=== PATIENT | male | born 1955 | race African-American/Black ===

== ENCOUNTER 2020-04-15 16:47 | Inpatient (IN) ==
[2020-04-15 19:00] LABS: Basophils % 0.2 % (0.0-0.8); Hematocrit 46.1 VOL% (42.0-52.0); Hemoglobin 16.1 GM/DL (14.0-18.0); Immature Granulocytes % 0.4 %; Immature Granulocytes Absolute 0.04 #; Lymphocytes # 2.1 10*3/uL (1.4-4.0); Lymphocytes % 19.5 % (21.2-54.2); Mean Corpuscular HGB Conc 34.9 GM/DL (32-36); Mean Corpuscular Volume 95.8 FL (87-102); Neutrophils % 69.9 % (38.7-73.9); Platelet Count 107 T/CUMM (130-400); Red Blood Count 4.81 MC/CUMM (3.8-5.5); Red Cell Distribution Width 12.5 % (9.3-17.3); White Blood Count 10.6 T/CUMM (4-12)
[2020-04-15 19:26] LABS: Albumin 3.5 G/DL (3.4-5.0); Bilirubin,Total 1.3 MG/DL (0.2-1.0); Calcium 9.1 MG/DL (8.5-10.1); Osmolality,Calculated 284.5 MOS/KG (273-304); Potassium 4.4 MMOL/L (3.5-5.1); Total Protein 7.8 G/DL (5.0-7.5)
[2020-04-15] MEDS ORDERED: ENOXAPARIN 100 MG/ML SYRINGE SUBCUT STA (19:44)
[2020-04-15] MEDS ORDERED: ALUMINUM/MAGNES/SIMETH MAX STR 30 ML UDCUP PO PRN (19:54)
[2020-04-15] MEDS ORDERED: NICOTINE 21 MG/24 HR PATCH TRANSDERM PRN (19:54)
[2020-04-15] MEDS ORDERED: GLUCAGON 1 MG VIAL IM PRN (19:54)
[2020-04-15] MEDS ORDERED: BISACODYL 5 MG TABLET PO PRN (19:54)
[2020-04-15] MEDS ORDERED: SIMETHICONE CHEW 125 MG TABLET PO PRN (19:54)
[2020-04-15] MEDS ORDERED: MORPHINE 4 MG/1 ML VIAL IV PRN (19:54)
[2020-04-15] MEDS ORDERED: diphenhydrAMINE CAP 25 MG CAPSULE PO PRN (19:54)
[2020-04-15] MEDS ORDERED: hydrALAZINE 20 MG/1 ML VIAL IV PRN (19:54)
[2020-04-15] MEDS ORDERED: ZALEPLON 5 MG CAPSULE PO PRN (19:54)
[2020-04-15] MEDS ORDERED: DEXTROSE 50% 25 GM/50 ML VIAL IV PRN (19:54)
[2020-04-15] MEDS ORDERED: ONDANSETRON 4 MG/2 ML VIAL IV PRN (19:54)
[2020-04-15] MEDS ORDERED: guaiFENesin/DM ER 600-30 MG TABLET PO PRN (19:54)
[2020-04-15] MEDS ORDERED: ACETAMINOPHEN 325 MG TABLET PO PRN (19:54)
[2020-04-15] MEDS ORDERED: FUROSEMIDE 40 MG/4 ML VIAL IV ONE (19:58)
[2020-04-15] MEDS: ASPIRIN 325 MG TABLET PO SCH (21:50)
[2020-04-15] MEDS: ENOXAPARIN 100 MG/ML SYRINGE SUBCUT SCH (22:38)
[2020-04-16] MEDS: ALBUTEROL/IPRATROPIUM 3 ML NEB RESP TX SCH ×2 (05:25→07:06)
[2020-04-16 05:29] LABS: Basophils % 0.2 % (0.0-0.8); Eosinophils % 0.1 % (0.00-10.9); Hematocrit 41.6 VOL% (42.0-52.0); Hemoglobin 14.9 GM/DL (14.0-18.0); Immature Granulocytes % 0.4 %; Immature Granulocytes Absolute 0.04 #; Lymphocytes # 2.2 10*3/uL (1.4-4.0); Mean Corpuscular HGB Conc 35.8 GM/DL (32-36); Mean Corpuscular Volume 95.2 FL (87-102); Mean Platelet Volume 12.2 FL (9.6-12.0); Monocytes % 11.7 % (1.7-12.7); Neutrophils % 63.6 % (38.7-73.9); Platelet Count 106 T/CUMM (130-400); Red Blood Count 4.37 MC/CUMM (3.8-5.5); Red Cell Distribution Width 12.5 % (9.3-17.3); White Blood Count 9.3 T/CUMM (4-12)
[2020-04-16 05:51] LABS: Hypochromasia 1+
[2020-04-16 05:52] LABS: Microcytosis Slight; Platelet Estimate Decreased
[2020-04-16 05:59] LABS: Albumin 2.8 G/DL (3.4-5.0); Bilirubin,Total 1.6 MG/DL (0.2-1.0); Calcium 8.8 MG/DL (8.5-10.1); Osmolality,Calculated 281.7 MOS/KG (273-304); Potassium 3.9 MMOL/L (3.5-5.1); Total Protein 6.8 G/DL (5.0-7.5)
[2020-04-16 07:48] VITALS: BP 123/79
[2020-04-16] MEDS ORDERED: FUROSEMIDE 40 MG/4 ML VIAL IV SCH (08:00)
[2020-04-16] MEDS ORDERED: DIAZEPAM 5 MG TABLET PO ONE (08:03)
[2020-04-16] MEDS ORDERED: SODIUM CHLORIDE 0.9% 1,000 ML IV SCH (08:30)
[2020-04-16] MEDS ORDERED: LIDOCAINE 1% 20 ML VIAL ONE (08:57)
[2020-04-16] MEDS ORDERED: HEPARIN/NACL 0.9% 2 UNITS/ML 1,000 ML IV ONE (08:57)
[2020-04-16] MEDS ORDERED: PANTOPRAZOLE 40 MG TABLET PO SCH (09:00)
[2020-04-16] MEDS: ENOXAPARIN 100 MG/ML SYRINGE SUBCUT SCH (09:00)
[2020-04-16] MEDS ORDERED: APIXABAN 5 MG TABLET PO SCH (09:00)
[2020-04-16] MEDS: ASPIRIN 325 MG TABLET PO SCH (09:00)
[2020-04-16] MEDS ORDERED: fentaNYL 100 MCG/2 ML VIAL ONE (09:19)
[2020-04-16] MEDS ORDERED: MIDAZOLAM 2 MG/2 ML VIAL ONE (09:19)
[2020-04-16] MEDS ORDERED: HEPARIN/NACL 0.9% 2 UNITS/ML 500 ML IV ONE (09:37)
[2020-04-16] MEDS ORDERED: DEXTROSE 50% 25 GM/50 ML VIAL IV ONE (10:31)
[2020-04-16] MEDS ORDERED: methylPREDNISolone SOD SUC 125 MG/2 ML VIAL ONE ×2 (10:32→10:44)
[2020-04-16] MEDS ORDERED: diphenhydrAMINE 50 MG/1 ML VIAL ONE (10:32)
[2020-04-16] MEDS ORDERED: ATROPINE 1 MG/10 ML SYRINGE ONE (10:33)
[2020-04-16] MEDS ORDERED: DOPamine 0 MG/0 ML PREMIX IV ONE (10:34)
[2020-04-16] MEDS ORDERED: NOREPINEPHRINE 4 MG/4 ML VIAL IV ONE (10:44)
[2020-04-16] MEDS ORDERED: EPINEPHrine 1 MG/10 ML SYRINGE ONE ×4 (10:56→11:12)
[2020-04-16] MEDS ORDERED: AMIODARONE 150 MG/3 ML VIAL ONE (10:56)
[2020-04-16] MEDS ORDERED: DOBUTamine 500 MG/250 ML PREMIX IV ONE (11:11)
[2020-04-16] MEDS ORDERED: DOPamine 800 MG/250 ML PREMIX IV ONE (11:23)
[2020-04-17] MEDS ORDERED: INFLUENZA VIRUS VACCINE 0.5 ML SYRINGE IM ONE (09:00)
== END 2020-04-16 11:22 | disposition expired | DRG 163 ==
LOC: N.ED 16:47 → N.EDINP 19:54 → N.TELES 21:09
PROVIDERS: ADMIT Internal Medicine; ATTEND Internal Medicine